=== PATIENT | female | born 1970 | race Caucasian/White ===

== ENCOUNTER 2024-01-20 07:17 | Emergency (ER) | payer BC ==
[~2024-01-20] VITALS: Ht 160 cm; Wt 104.3 kg
[~2024-01-20 07:17] MED LIST: EFFEXOR XR75 M1 PO; EFFEXOR100 MG PO; RITE AID MAGNE500 MG PO
[2024-01-20] MEDS ORDERED: cloNIDine Hydrochloride 0.1 MG TAB PO ONE ×2 (07:55→09:40)
[2024-01-20] MEDS ORDERED: Oxymetazoline Hydrochloride Nasal 15 ml bottle NAS ONE (09:40)
== END 2024-01-20 09:30 | disposition home or self-care (01) ==
LOC: ED 07:17
DX: R04.0 Epistaxis (principal); R03.0 Elevated blood-pressure reading, without diagnosis of hypertension; R51.9 Headache, unspecified; Z88.6 Allergy status to analgesic agent; Z88.8 Allergy status to other drugs, medicaments and biological substances; Z88.5 Allergy status to narcotic agent; Z90.710 Acquired absence of both cervix and uterus; Z98.51 Tubal ligation status; Z98.890 Other specified postprocedural states